=== PATIENT | male | born 1950 | race Caucasian/White ===

== ENCOUNTER 2017-02-05 15:59 | Inpatient (IN) | payer OTHER, BC ==
[2017-02-05] MEDS ORDERED: ASPIRIN 81 MG CHEWABLE TABLETS PO ONE (16:49)
[2017-02-05] MEDS ORDERED: ASPIRIN 81 MG CHEWABLE TABLETS ONE (16:57)
--- NOTE | 2017-02-05 16:58 | PDOC ---
History of Present Illness - General Chief Complaint: Chest Pain Stated Complaint: CHEST PAIN Time Seen by Provider: 02/05/17 16:18 History Source: Patient Exam Limitations: No Limitations - History of Present Illness Initial Comments: 02/05/17 16:52 Patient is a 66M with history of IDDM, CAD s/p stenting, HTN, Obesity s/p gastric bypass, and HLD here today complaining of chest pain since this morning. He states that it does not radiate, gets worse with exertion and better with rest. The pain doesn't get worse with inspiration or expiration. He denies nausea, vomiting, fevers, chills and diaphoresis. He endorses shortness of breath at baseline and increased shortness of breath. He says that he had a stress test done Monday but does not know the results and was scheduled for several other advanced cardiology tests this week. PCP: Louis All: [facility] Past History - Past Medical History Allergies/Adverse Reactions: Allergies Allergy/AdvReac Type Severity Reaction Status Date / Time No Known Allergies Allergy Verified 02/05/17 16:09 Home Medications: Ambulatory Orders Insulin Pump/Infus. Set/Meter [Accu-Chek Combo System] 1 each MC ASDIR 08/18/15 Levothyroxine [Synthroid -] 25 mcg PO DAILY 08/18/15 Ranolazine [Ranexa] 500 mg PO DAILY 08/18/15 Ropinirole HCl [Requip] 1 mg PO DAILY 08/18/15 Ropinirole HCl [Requip] 2 mg PO HS 08/18/15 Bisacodyl [Correctol] 5 mg PO DAILY 10/23/15 Cyanocobalamin (Vitamin B-12) [Vitamin B12] 1,000 mg PO DAILY 12/13/15 Metoprolol Succinate [Toprol XL -] 50 mg PO DAILY 12/13/15 Multivit-Min/FA/Lycopen/Lutein [Centrum Silver Tablet] 1 each PO DAILY 12/13/15 Omeprazole [Prilosec] 20 mg PO DAILY 12/13/15 Ondansetron HCl [Zofran] 4 mg PO DAILY PRN 12/13/15 Ergocalciferol [Vitamin D2] 50,000 unit PO Q7D 12/14/15 Anemia: No Asthma: No Cancer: No Cardiac Disorders: Yes (CAD, [place] 2005,ANGINA) CVA: No COPD: No CHF: No DVT: No Dementia: No Diabetes: Yes GI Disorders: Yes (Ulcerative colitis, GERD) Disorders: Yes (Renal Insufficiency) HTN: Yes Hypercholesterolemia: Yes Liver Disease: No Seizures: No Thyroid Disease: Yes (hypothyroid) - Surgical History Abdominal Surgery: Yes (gastric bypass 2005) Appendectomy: No Cardiac Surgery: Yes (stents x4) Cholecystectomy: No Gastric Stapling: Yes (GASTRIC BYPASS 2005) Lung Surgery: No Neurologic Surgery: No Orthopedic Surgery: No - Immunization History Immunization Up to Date: No - Suicide/Smoking/Psychosocial Hx Smoking Status: No Smoking History: Never smoked Have you smoked in the past 12 months: No Number of Cigarettes Smoked Daily: 0 Information on smoking cessation initiated: No Hx Alcohol Use: No Drug/Substance Use Hx: No Substance Use Type: None Hx Substance Use Treatment: No Review of Systems - Review of Systems Comments:: 02/05/17 17:30 GENERAL/CONSTITUTIONAL: No fever or chills. No weakness. HEAD, EYES, EARS, NOSE AND THROAT: No change in vision. No ear pain or discharge. No sore throat. CARDIOVASCULAR: Positive for chest pain and shortness of breath RESPIRATORY: No cough, wheezing, or hemoptysis. GASTROINTESTINAL: No nausea, vomiting, diarrhea or constipation. GENITOURINARY: No dysuria, frequency, or change in urination. MUSCULOSKELETAL: No joint or muscle swelling or pain. No neck or back pain. SKIN: No rash NEUROLOGIC: Positive for mild headache. Negative for vertigo, loss of consciousness, or change in strength/sensation. ENDOCRINE: No increased thirst. No abnormal weight change HEMATOLOGIC/LYMPHATIC: No anemia, easy bleeding, or history of blood clots. ALLERGIC/IMMUNOLOGIC: No hives or skin allergy. *Physical Exam - Vital Signs Last Vital Signs Temp Pulse Resp BP Pulse Ox 98.4 F 87 19 145/74 97 02/05/17 16:07 02/05/17 16:07 02/05/17 16:07 02/05/17 16:07 02/05/17 16:07 - Physical Exam Comments: 02/05/17 17:34 GENERAL: Awake, alert, and fully oriented, in no acute distress HEAD: No signs of trauma, normocephalic, atraumatic EYES: PERRLA, EOMI, sclera anicteric, conjunctiva clear ENT: Auricles normal inspection, hearing grossly normal, nares patent, oropharynx clear without exudates. Moist mucosa NECK: Normal ROM, supple, no lymphadenopathy, JVD, or masses LUNGS: No distress, speaks full sentences, clear to auscultation bilaterally HEART: Regular rate and rhythm, normal S1 and S2, no murmurs, rubs or gallops, peripheral pulses normal and equal bilaterally. ABDOMEN: Soft, nontender, normoactive bowel sounds. No guarding, no rebound. No masses EXTREMITIES: Normal inspection, Normal range of motion, 2+ pitting edema to knee. No clubbing or cyanosis. NEUROLOGICAL: Cranial nerves II through XII grossly intact. Normal speech, no focal sensorimotor deficits SKIN: Warm, Dry, normal turgor, no rashes or lesions noted. Heart Score/ECG Review - History History: Highly suspicious - Electrocardiogram EKG: Normal - Age Age: >/= 65 - Risk Factors Risk Factors Heart Score: Yes Hx Hypercholesterolemia, Yes Hx Diabetes, Yes Hx Obesity Based on the list above the patient has:: >/=3 risk factors or Hx atherosclerotic disease - Troponin Troponin: </= normal limit - Score Heart Score - Total: 6 ED Treatment Course - LABORATORY CBC & Chemistry Diagram: 02/05/17 17:45 02/05/17 17:45 - RADIOLOGY Radiology Studies Ordered: Category Date Time Status CHEST X-RAY PORTABLE* [RAD] Stat Radiology 02/05/17 16:49 Ordered Medical Decision Making - Medical Decision Making 02/05/17 17:35 Patient is a 66M with history of IDDM, CAD s/p stenting, HTN, Obesity s/p gastric bypass, and HLD here today complaining of chest pain since this morning. Vital signs stable and normal. Differential diagnosis includes, but is not limited to: ACS, angina, CHF. Will evaluate with cardiac workup and most likely admit to inpatient tele. 02/05/17 18:43 Laboratory Tests 02/05/17 02/05/17 17:10 17:10 WBC Cancelled Hgb Cancelled Hct Cancelled INR 0.96 CBC shows slight anemia, INR normal. cmp, trop pending. 02/05/17 19:03 Laboratory Tests 02/05/17 17:10 Random Glucose Cancelled Troponin I Cancelled Glucose elevated given 500 ml. Trop negative. Will admit. Signed out to Dr Murphy. 02/05/17 19:07 On further question, patient has a history of DVT with an elevated Cr. Will need V/Q scan tomorrow. Signed out to Dr Murphy. *DC/Admit/Observation/Transfer Diagnosis at time of Disposition: Chest pain - Referrals Referrals: Pavel Myers MD [Primary Care Provider] - - Patient Instructions - Post Discharge Activity
[2017-02-05] MEDS ORDERED: SODIUM CHLORIDE 500 ML IV STA (18:03)
--- NOTE | 2017-02-05 18:09 | PDOC ---
Attending Attestation - Resident Resident Name: Blas Carpenter - ED Attending Attestation I have performed the following: I have examined & evaluated the patient, The case was reviewed & discussed with the resident, I agree w/resident's findings & plan, Exceptions are as noted - HPI HPI: 02/05/17 18:06 66 M with h/o IDDM, CAD s/p stenting, HTN, Obesity s/p gastric bypass, and HLD, presenting to ER with chest pain. Pt states the pain began this morning. It is midsternal, non-radiating. It is worsened with exertion and relieved with rest. Pain is not pleuritic. Pt denies any F/C. Denies cough. Pt also has h/o DVT, no longer on coumadin. He denies any new swelling in his legs. Had an outpt doppler last week but does not know the results. - Physicial Exam PE: 02/05/17 18:07 "GENERAL: Awake, alert, and fully oriented, in no acute distress HEAD: No signs of trauma EYES: PERRLA, EOMI, sclera anicteric, conjunctiva clear ENT: Auricles normal inspection, hearing grossly normal, nares patent, oropharynx clear without exudates. Moist mucosa NECK: Nontender, no stepoffs, Normal ROM, supple, no lymphadenopathy, JVD, or masses LUNGS: Breath sounds equal, clear to auscultation bilaterally. No wheezes, and no crackles HEART: Regular rate and rhythm, normal S1 and S2, no murmurs, rubs or gallops ABDOMEN: Soft, nontender, normoactive bowel sounds. No guarding, no rebound. No masses EXTREMITIES: Normal range of motion, no edema. No clubbing or cyanosis. No cords, erythema, or tenderness NEUROLOGICAL: Cranial nerves II through XII intact. 5/5 strength and sensation in all extremities, Normal speech, normal gait SKIN: Warm, Dry, normal turgor, no rashes or lesions noted. " - Medical Decision Making 02/05/17 18:08 66 M with CAD presenting with chest pain, concerning for ACS. EKG with no ischemic changes. No tearing sensation to suggest dissection. No SOB/tachycardia /hypoxia/tachypnea to suggest PE. However, given h/o DVT not on AC, will need PE rule out. - Labs, serial troponins - Aspirin - CXR - Admit tele 02/05/17 19:12 Initial Trop negative, EKG nonischemic. Pt with Cr 2.8, unable to get CTA to r/o PE. Will need V/Q scan as inpt. Pt signed out to oncoming attending, pending repeat troponin and admission to tele.
[2017-02-05 18:21] LABS: MCH 32.6 pg (25.7-33.7); MCHC 34.8 g/dl (32.0-35.9); MEAN CELL VOLUME 93.8 fl (80-96); MEAN PLT VOLUME 8.2 fl (7.5-11.1); PLATELET COUNT 228 K/MM3 (134-434); RDW 13.2 % (11.9-15.9); WHITE BLOOD COUNT 6.8 K/mm3 (4.0-10.0)
[2017-02-05 18:24] LABS: INR 0.96 (0.82-1.09); PROTHROMBIN TIME (PATIENT) 10.8 SEC (9.98-11.88)
[2017-02-05 18:45] LABS: ANION GAP 11 (8-16); BILIRUBIN,TOTAL 0.3 mg/dL (0.2-1.0); CALCIUM 8.1 mg/dL (8.5-10.1); CO2 23 mmol/L (21-32); CREATININE 2.8 mg/dL (0.7-1.3); SGOT/AST 14 U/L (15-37); SGPT/ALT 24 U/L (12-78); TOT PROT 6.1 g/dl (6.4-8.2)
[2017-02-05 18:47] LABS: ALK PHOS 68 U/L (45-117); CPK 122 IU/L (39-308); TROPONIN I < 0.02 ng/ml (0.00-0.05)
[2017-02-05 18:49] LABS: GLUCOSE,RANDOM 372 mg/dL (74-106)
[2017-02-05] MEDS ORDERED: NITROGLYCERIN SUBLINGUAL 1/150 0.4 MG TAB SL ONE (18:53)
[2017-02-05] MEDS ORDERED: NITROGLYCERIN SUBLINGUAL 1/150 0.4 MG TAB ONE ×2 (19:05→19:39)
--- NOTE | 2017-02-05 20:04 | PDOC ---
*Physical Exam - Vital Signs Care assumed from Dr. Carpenter. 66 YOM with h/o CAD with stenting, DVT/PE, p/w chest pain since this morning persistent despite NTG here in the ED. Initial EKG and troponin were normal. Admitted to tele. On re-exam he has irregular rhythm which appears to be PACs on monitor, will repeat EKG now. PACs were previously noted on EKG from 08/18/15. Last Vital Signs Temp Pulse Resp BP Pulse Ox 98.4 F 73 20 149/81 100 02/05/17 16:07 02/05/17 18:51 02/05/17 18:51 02/05/17 18:51 02/05/17 18:51 02/05/17 20:08 - Physical Exam General Appearance: Yes: Nourished, Appropriately Dressed, Other (alert and answering questions appropriately). No: Apparent Distress HEENT: positive: EOMI, Normal Voice Neck: positive: Trachea midline. negative: Rigid Respiratory/Chest: positive: Lungs Clear. negative: Respiratory Distress Cardiovascular: positive: Irregular Gastrointestinal/Abdominal: positive: Soft. negative: Tender Musculoskeletal: positive: Normal Inspection. negative: Decreased Range of Motion Extremity: positive: Normal Capillary Refill, Normal Inspection. 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 intact (grossly), Fully Oriented, Alert, Normal Mood/Affect, Normal Response, Motor Strength 5/5 Heart Score/ECG Review - History History: Highly suspicious - Electrocardiogram EKG: Normal - Age Age: >/= 65 - Risk Factors Risk Factors Heart Score: Yes Hx Hypercholesterolemia, Yes Hx Hypertension, Yes Hx Diabetes, Yes Hx Obesity Based on the list above the patient has:: >/=3 risk factors or Hx atherosclerotic disease - Troponin Troponin: 1-3x normal limit - Score Heart Score - Total: 7 ED Treatment Course - LABORATORY CBC & Chemistry Diagram: 02/06/17 06:10 02/05/17 17:45 - ADDITIONAL ORDERS Additional order review: Laboratory Results 02/05/17 02/05/17 02/05/17 17:45 17:10 17:10 PT with INR INR Sodium 139 Cancelled Potassium 4.1 Cancelled Chloride 105 Cancelled Carbon Dioxide 23 Cancelled Anion Gap 11 Cancelled BUN 52 H D Cancelled Creatinine 2.8 H D Cancelled Creat Clearance w eGFR 22.86 Cancelled Random Glucose 372 H* D Cancelled Calcium 8.1 L Cancelled Magnesium Cancelled Total Bilirubin 0.3 D Cancelled AST 14 L D Cancelled ALT 24 Cancelled Alkaline Phosphatase 68 Cancelled Creatine Kinase 122 Cancelled Troponin I < 0.02 Cancelled B-Natriuretic Peptide Cancelled Total Protein 6.1 L Cancelled Albumin 3.0 L Cancelled 02/05/17 17:10 PT with INR 10.80 INR 0.96 Sodium Potassium Chloride Carbon Dioxide Anion Gap BUN Creatinine Creat Clearance w eGFR Random Glucose Calcium Magnesium Total Bilirubin AST ALT Alkaline Phosphatase Creatine Kinase Troponin I B-Natriuretic Peptide Total Protein Albumin 02/05/17 02/05/17 17:45 17:10 RBC 3.53 L Cancelled MCV 93.8 Cancelled MCHC 34.8 Cancelled RDW 13.2 Cancelled MPV 8.2 Cancelled Neutrophils % Cancelled Lymphocytes % Cancelled Monocytes % Cancelled Eosinophils % Cancelled Basophils % Cancelled - Medications Given in the ED: ED Medications Discontinued Medications Generic Name Dose Route Start Last Admin Trade Name Elizabeth PRN Reason Stop Dose Admin Aspirin 162 mg 02/05/17 16:49 02/05/17 17:31 Asa - PO 02/05/17 16:50 162 mg ONCE ONE Administration Sodium Chloride 500 mls @ 1,000 mls/hr 02/05/17 18:03 02/05/17 18:35 Normal Saline - IV 02/05/17 18:32 1,000 mls/hr ASDIR STA Administration Nitroglycerin 0.4 mg 02/05/17 18:53 02/05/17 19:05 Nitrostat - SL 02/05/17 18:54 0.4 mg ONCE ONE Administration Medical Decision Making - Medical Decision Making 66 YOM wih h/o CAD, stenting, DVT/PE 1.5 years ago anticoagulated for 6 months. Presents with CP all day, persists after 2 NTG in the ED. EKG and trop negative initially; repeating 3-4 hours later now. 02/05/17 20:21 PACs on EKG which were noted previously only when he was admitted for PE. 2 mg morphine ordered for continued pain. Repeating CBG now. Spoke with admitting resident Danika Gray, will speak with her team. 02/05/17 22:10 Repeat troponin is 0.12, giving heparin and Plavix. Fingerstick BG is 314. 01/27/17 06:00 Pt required repeated morphine 2 mg IM throughout the night but otherwise doing well. Awaiting hospital tele bed. Care passed down to oncoming morning shift. *DC/Admit/Observation/Transfer Diagnosis at time of Disposition: Chest pain Qualifiers: Chest pain type: unspecified Qualified Code(s): R07.9 - Chest pain, unspecified - Referrals - Patient Instructions - Post Discharge Activity
[2017-02-05] MEDS ORDERED: morphine CARPU-JECT 2 MG/1 ML DISP.SYRIN IVPUSH ONE ×3 (20:20→21:41)
[2017-02-05] MEDS ORDERED: morphine SULFATE 4 MG/ML VIAL ONE ×2 (20:22→21:18)
[2017-02-05] MEDS ORDERED: KETOROLAC TROMETHAMINE 30 MG/1 ML VIAL IVPUSH ONE (20:31)
[2017-02-05 21:15] LABS: TROPONIN I 0.12 ng/ml (0.00-0.05)
[2017-02-05] MEDS ORDERED: KETOROLAC TROMETHAMINE 30 MG/1 ML VIAL ONE (21:19)
[2017-02-05] MEDS ORDERED: HEPARIN NA (PORCINE) 5,000 UNITS/ML 1ML VIAL IVPUSH ONE (22:03)
[2017-02-05] MEDS ORDERED: HEPARIN NA (PORCINE) 5,000 UNITS/ML 1ML VIAL IVPUSH PRN (22:03)
[2017-02-05] MEDS ORDERED: CLOPIDOGREL BISULFATE 300 MG TABLET PO ONE (22:06)
[2017-02-05] MEDS ORDERED: HEPARIN INFUSION - 25,000 UNITS/500 ML INFUS.BAG IVPB ONE (22:43)
[2017-02-05] MEDS ORDERED: CLOPIDOGREL BISULFATE 300 MG TABLET ONE (22:43)
[2017-02-05] MEDS ORDERED: HEPARIN NA (PORCINE) 5,000 UNITS/ML 1ML VIAL ONE (22:43)
[2017-02-05] MEDS: HEPARIN - 25,000 UNIT in SODIUM CHLORIDE 495 ML IV SCH (22:54)
[2017-02-05] MEDS ORDERED: PATIENT'S OWN MEDICATION (NON-FORMULARY) (Insulin Pump/Infus. Set/Meter [Accu-Chek Combo S MC SCH (23:30)
[2017-02-05] MEDS ORDERED: morphine SULFATE 4 MG/ML VIAL IVPUSH PRN (23:31)
[2017-02-05] MEDS ORDERED: NITROGLYCERIN SUBLINGUAL 1/200 0.3 MG BTL SL PRN (23:31)
[2017-02-06] MEDS: SODIUM CHLORIDE 1,000 ML IV SCH ×2 (00:23→23:17)
[2017-02-06] MEDS: LOSARTAN POTASSIUM 50 MG TABLET (FP) PO SCH ×2 (00:23→09:45)
[2017-02-06] MEDS ORDERED: LOSARTAN POTASSIUM 25 MG TABLET ONE (00:29)
[2017-02-06] MEDS ORDERED: PANTOPRAZOLE 40 MG TABLET (FP) ONE (00:29)
[2017-02-06] MEDS: PANTOPRAZOLE 40 MG TABLET (FP) PO SCH ×2 (00:37→09:43)
[2017-02-06] MEDS ORDERED: morphine CARPU-JECT 2 MG/1 ML DISP.SYRIN IVPUSH ONE (05:23)
[2017-02-06] MEDS ORDERED: morphine SULFATE 4 MG/ML VIAL ONE (05:24)
[2017-02-06 06:45] LABS: BASOPHIL 0.7 % (0-2.0); MCH 32.2 pg (25.7-33.7); MCHC 34.2 g/dl (32.0-35.9); MEAN CELL VOLUME 94.2 fl (80-96); MEAN PLT VOLUME 7.8 fl (7.5-11.1); NEUTROPHILS 48.3 % (42.8-82.8); PLATELET COUNT 196 K/MM3 (134-434); RDW 13.4 % (11.9-15.9); WHITE BLOOD COUNT 8.4 K/mm3 (4.0-10.0)
[2017-02-06] MEDS: TORSEMIDE 10 MG TABLET PO SCH ×2 (06:57→14:45)
--- NOTE | 2017-02-06 08:24 | PDOC ---
*Physical Exam - Vital Signs Last Vital Signs Temp Pulse Resp BP Pulse Ox 98.4 F 65 18 120/61 100 02/06/17 01:21 02/06/17 01:21 02/06/17 01:21 02/06/17 01:21 02/06/17 01:21 - Physical Exam Comments: 02/06/17 08:20 GENERAL: Awake, alert, and fully oriented, in no acute distress HEAD: No signs of trauma, normocephalic, atraumatic EYES: PERRLA, EOMI, sclera anicteric, conjunctiva clear ENT: Auricles normal inspection, hearing grossly normal, nares patent, oropharynx clear without exudates. Moist mucosa NECK: Normal ROM, supple, no lymphadenopathy, JVD, or masses LUNGS: No distress, speaks full sentences, clear to auscultation bilaterally HEART: Regular rate and rhythm, normal S1 and S2, no murmurs, rubs or gallops, peripheral pulses normal and equal bilaterally. EXTREMITIES: Normal inspection, Normal range of motion, no edema. No clubbing or cyanosis. NEUROLOGICAL: Cranial nerves II through XII grossly intact. Normal speech, no focal sensorimotor deficits SKIN: Warm, Dry, normal turgor, no rashes or lesions noted. ED Treatment Course - LABORATORY CBC & Chemistry Diagram: 02/06/17 06:10 02/05/17 17:45 - ADDITIONAL ORDERS Additional order review: Laboratory Results 02/05/17 18:00 POC Glucometer [id number] 02/05/17 02/05/17 02/05/17 18:00 17:45 17:10 RBC 3.53 L Cancelled MCV 93.8 Cancelled MCHC 34.8 Cancelled RDW 13.2 Cancelled MPV 8.2 Cancelled Neutrophils % Cancelled Lymphocytes % Cancelled Monocytes % Cancelled Eosinophils % Cancelled Basophils % Cancelled POC Glucometer [id number] - RADIOLOGY Radiology Studies Ordered: Category Date Time Status CHEST X-RAY PORTABLE* [RAD] Stat Radiology 02/05/17 16:49 Completed DUPLEX VASCUL US-2LEGS [US] Stat Ultrasound 02/05/17 19:17 Taken - Medications Given in the ED: ED Medications Discontinued Medications Generic Name Dose Route Start Last Admin Trade Name Freq PRN Reason Stop Dose Admin Aspirin 162 mg 02/05/17 16:49 02/05/17 17:31 Asa - PO 02/05/17 16:50 162 mg ONCE ONE Administration Clopidogrel Bisulfate 300 mg 02/05/17 22:06 02/05/17 22:54 Plavix - PO 02/05/17 22:07 300 mg ONCE ONE Administration Heparin Sodium (Porcine) 5,000 unit 02/05/17 22:03 02/05/17 22:54 Heparin - IVPUSH 02/05/17 22:04 5,000 unit ONCE ONE Administration Sodium Chloride 500 mls @ 1,000 mls/hr 02/05/17 18:03 02/05/17 18:35 Normal Saline - IV 02/05/17 18:32 1,000 mls/hr ASDIR STA Administration Ketorolac Tromethamine 30 mg 02/05/17 20:31 02/05/17 20:30 Toradol Injection - IVPUSH 02/05/17 20:32 30 mg ONCE ONE Administration Morphine Sulfate 2 mg 02/05/17 20:20 02/05/17 20:36 Morphine Injection - IVPUSH 02/05/17 20:21 2 mg ONCE ONE Administration Morphine Sulfate 2 mg 02/05/17 20:31 02/05/17 20:40 Morphine Injection - IVPUSH 02/05/17 20:32 2 mg ONCE ONE Administration Morphine Sulfate 2 mg 02/05/17 21:41 02/05/17 21:49 Morphine Injection - IVPUSH 02/05/17 21:42 2 mg ONCE ONE Administration Morphine Sulfate 2 mg 02/06/17 05:23 02/06/17 05:32 Morphine Injection - IVPUSH 02/06/17 05:24 2 mg ONCE ONE Administration Nitroglycerin 0.4 mg 02/05/17 18:53 02/05/17 19:05 Nitrostat - SL 02/05/17 18:54 0.4 mg ONCE ONE Administration Medical Decision Making - Medical Decision Making 02/06/17 08:22 66M with history of IDDM, CAD s/p stenting in the ED today with chest pain. Admitted already. Trop called in at 10.6. Chest pain free. Ordered repeat EKG. Calls out to Andrea, the admitting team. Exam normal. 02/06/17 08:43 EKG shows normal sinus rhythm, normal rate, normal axis, no st elevations or t- wave inversions. Normal intervals. 02/06/17 09:46 Patient's admitting team notified and contacted. Appraised of situation. Given aspirin, already on heparin drip, given additional 300mg of plavix for a total of 600. *DC/Admit/Observation/Transfer Diagnosis at time of Disposition: Chest pain - Referrals - Patient Instructions - Post Discharge Activity
[2017-02-06] MEDS ORDERED: ASPIRIN 81 MG CHEWABLE TABLETS PO ONE (08:40)
[2017-02-06] MEDS ORDERED: CLOPIDOGREL BISULFATE 300 MG TABLET PO ONE (08:40)
--- NOTE | 2017-02-06 09:12 | CON.CARD ---
Consult Consult Specialty:: cardio Referred by:: shalom Reason for Consultation:: cp - History of Present Illness Chief Complaint: same History of Present Illness: 66 yo man came to ER 02/05 with unremitting cp all day. per ER notes, pain persisted in ER, unresponsive to nitro (given in ER on 02/05 at 19:05) ECG x3 in ER no ischemic changes describes on DOA strong squeezing pain in mid-sternum, 5 of 10 intensity. hasn't had pain that severe since his last CA. similar quality to angina though. resolved after ranexa in am, then returned in afternoon so came to ER--given NTG SL x 2 he says, no relief. given morphine IV last night with good relief. then another dose this am. feeling still lingers mild, about 2 out of 10. no sob/orthopnea. notes sob on walking short distance--stable long time. pt sees dr cannon, last visit 01/18. known chronic CAD with angina. by notes, his angina persisted after last stent in 2009 baseline was 2-3 blocks, had recently progressed to 1/2 block effort tolerance with angina. BB, then ranexa added, and sx's improved markedly. correct home meds list: ASA 81 benicar 20 ranexa 1000 bid metopr succ 50 qd atorva 80 lovaza 2g bid torsemide 10 BIW PMH: CAD/PCI (h/o stents to mLAD, D2, mRCA, then DELMIS to pLAD 2009 for typical angina) DVT--s/p 12 mo AC (2015, provoked) DM--on insulin HTN obesity s/p gastric bypass [facility]--declined cpap 2015: staph infection at insulin pump site - Past Medical History Cardio/Vascular: Yes: CAD, HTN, Hyperlipdemia Pulmonary: Yes: Pulmonary Embolus Endocrine: Yes: Diabetes Mellitus - Alcohol/Substance Use Hx Alcohol Use: No - Smoking History Smoking history: Never smoked Have you smoked in the past 12 months: No Aproximately how many cigarettes per day: 0 Home Medications - Allergies Allergies/Adverse Reactions: Allergies Allergy/AdvReac Type Severity Reaction Status Date / Time No Known Allergies Allergy Verified 02/05/17 16:09 - Home Medications Home Medications: Ambulatory Orders Insulin Pump/Infus. Set/Meter [Accu-Chek Combo System] 1 each ASDIR 08/18/15 Ranolazine [Ranexa] 500 mg PO DAILY 08/18/15 Ropinirole HCl [Requip] 1 mg PO DAILY 08/18/15 Metoprolol Succinate [Toprol XL -] 50 mg PO DAILY 12/13/15 Multivit-Min/FA/Lycopen/Lutein [Centrum Silver Tablet] 1 each PO DAILY 12/13/15 Omeprazole [Prilosec] 40 mg PO DAILY 12/13/15 Bisacodyl [Ducodyl] 5 mg PO DAILY 02/05/17 Icosapent Ethyl [Vascepa] 1 gm PO DAILY 02/05/17 Olmesartan Medoxomil 20 mg PO DAILY 02/05/17 Promethazine HCl 25 mg PO DAILY 02/05/17 Tamsulosin HCl [Flomax] 0.4 mg PO DAILY 02/05/17 Torsemide [Demadex] 10 mg PO WEEKLY 02/05/17 Family Disease History - Family Disease History Family History: Denies (no cmp) Review of Systems - Review of Systems Constitutional: denies: Chills, Fever Eyes: denies: Eye Pain HENT: denies: Nasal Congestion Neck: denies: Stiffness Cardiovascular: denies: Palpitations Respiratory: denies: Orthopnea, PND Gastrointestinal: denies: Diarrhea, Rectal Bleeding Genitourinary: denies: Burning, Hematuria Musculoskeletal: denies: Muscle Pain Integumentary: denies: Rash Neurological: denies: Numbness, Seizure, Syncope Endocrine: denies: Excessive Sweating Hematology/Lymphatic: denies: Excessive Bleeding Vital Signs: Vital Signs Temperature 98.4 F 02/06/17 01:21 Pulse Rate 65 02/06/17 01:21 Respiratory Rate 18 02/06/17 01:21 Blood Pressure 120/61 02/06/17 01:21 O2 Sat by Pulse Oximetry (%) 100 02/06/17 01:21 Constitutional: Yes: Well Nourished, No Distress Eyes: No: Sclera Icterus HENT: No: Nasal Congestion Neck: No: Decreased ROM Respiratory: Yes: CTA Bilaterally. No: Accessory Muscle Use, Rales, Wheezes Gastrointestinal: Yes: Normal Bowel Sounds. No: Distention, Hepatomegaly, Palpable Mass, Tenderness Cardiovascular: Yes: Regular Rate and Rhythm JVD: No Carotid Bruit: No PMI: Non-Displaced Heart Sounds: Yes: S1, S2. No: Gallop Murmur: No: Systolic Murmur, Diastolic Murmur Musculoskeletal: Yes: Other (No kyphosis) Extremities: No: Cold, Cyanosis Edema: No Peripheral Pulses: 2+ Left Carotid, 2+ Right Carotid, 2+ Left Doralis Pedis, 2+ Right Dorsalis Pedis Integumentary: No: Jaundice Neurological: Yes: Alert, Oriented (x3) Psychiatric: No: Agitated - Other Data Labs, Other Data: CBC, BMP 02/06/17 06:10 02/05/17 17:45 INR, PTT INR 0.96 (0.82-1.09) 02/05/17 17:10 Troponin, BNP 02/05/17 02/05/17 02/05/17 17:10 17:10 17:45 Troponin I Cancelled < 0.02 B-Natriuretic Peptide Cancelled 02/05/17 02/06/17 20:30 06:10 Troponin I 0.12 H D 10.60 H* D B-Natriuretic Peptide Troponin, BNP 02/05/17 02/05/17 02/05/17 17:10 17:10 17:45 Troponin I Cancelled < 0.02 B-Natriuretic Peptide Cancelled 02/05/17 02/06/17 20:30 06:10 Troponin I 0.12 H D 10.60 H* D B-Natriuretic Peptide Laboratory Tests 12/15/15 02/05/17 02/05/17 06:50 17:45 20:30 WBC Hgb Plt Count Sodium 139 Potassium 4.1 Carbon Dioxide 23 BUN 52 H D Creatinine 2.8 H D Hemoglobin A1c % 10.3 H D AST 14 L D ALT 24 Troponin I < 0.02 0.12 H D 02/06/17 02/06/17 06:10 06:10 WBC 8.4 Hgb 11.3 L Plt Count 196 Sodium Potassium Carbon Dioxide BUN Creatinine Hemoglobin A1c % AST ALT Troponin I 10.60 H* D Assessment/Plan ECG #1 (02/05): NSR, LAFB, no path q's; no ST-T abn #2 (02/05): no change #3 (02/06): no change Echo 08/09: nl LV/EF; nl RV; nl LA; trace MR; nuclear stress test 06/09 report (outside facility, in [place]): no STs; mid- basal IW ischemia MPI 01/30/17 ([facility]): no STs; no ischemia; nl EF (89%) NSTEMI on h/o prior CAD: -has h/o chronic angina (persisted after last PCI 2009), stable sx's improved signif on metopr and renexa as outpt recently -developed persistent CP on DOA 02/05 -no ekg changes x3 -ruling in, now with troponin rising briskly to 10 -LCX lesion more likely here than balanced (multivessel) ischemia in light of normal (hyperdynamic) EF on mpi, though the latter is possible and pt at risk for MVDz -hi risk for CHRISTA. after d/w his outpt [employer] manager dr charles, his creat is close to baseline though slightly above last value 04/12 (only sees pt once a year as he is in [place] half the year) and same as 11/[address] riggins (creat 2.74 then)--? acute vs more likely gradual DM nephropathy progression accounts for the slightly higher creat -he thinks significant improvement in renal fxn pre-cath to ameliorate CHRISTA risk is not likely, and rec's the standard gerber-cath prophylaxis -i d/w'd pt and the small but finite risk of MVDz here, which is associated with signif worse outcome (MIs and ) with med mgmt vs revascularization in him; also d/w'd him the risks of CHRISTA and their estimated probability. -he verbalized understanding of the discussion and stated that he wants to be aggressive and prolong life expectancy/minimize CV risks as much as possible, hence wishes to pursue cath. -d/w'd dr lam interventionalist--will plan to hydrate overnight and take for cath tomorrow if remains clinically without unstable sx's -received plavix 300mg x1 in ER,on 02/05, then 600mg / am (?). -cont asa, UFH gtt -per interventionalist, will cont plavix since he was already loaded -cont home atorva 80, metopr 50 -hold ARB (? on at home--ordered here) given hi risks for acute worsening renal fxn -hold home ranexa (on 1000 bid) CKD: -prior creat range here 2015 = 1.9-2.4 -04/12 was 2.6 -currently with creat 2.8 -hydration for CHRISTA prophlxs as above HTN: -BP controlled -cont same meds DM: -A1c 9.0 in 04/12, ? more recent -per pmd
[2017-02-06] MEDS: METOPROLOL SUCCINATE 50 MG TAB.SR.24H (FP) PO SCH (09:44)
[2017-02-06] MEDS: PROMETHAZINE HCL 25 MG TABLET PO SCH (09:55)
[2017-02-06] MEDS: BISACODYL 5 MG TABLET.DR (FP) PO SCH (09:59)
[2017-02-06] MEDS: TAMSULOSIN HCL 0.4 MG CAP.ER.24H (FP) PO SCH (09:59)
[2017-02-06] MEDS ORDERED: [UNRECOGNIZED DRUG - OTHER] PO SCH (10:00)
[2017-02-06] MEDS ORDERED: RANOLAZINE E.R. 500 MG TABLET (FP) PO SCH (10:00)
[2017-02-06] MEDS ORDERED: VALSARTAN 160 MG TABLET (UD) PO SCH (10:00)
--- NOTE | 2017-02-06 10:20 | HP ---
Admitting History and Physical - Primary Care Physician PCP: Pavel Myers - Admission History of Present Illness: Patient is a 66M with history of IDDM, CAD s/p stenting, HTN, Obesity s/p gastric bypass, DVT S/P AC for 12 months,and HLD here today complaining of chest pain since this morning. He states that it does not radiate, gets worse with exertion and better with rest. The pain doesn't get worse with inspiration or expiration. per patient he describes the chest pain as tightness which started at rest non radiating, he took ranexa and he says he felt better the pain resolved but after a little while it came back again and then he decided to come to ER. He denies nausea, vomiting, fevers, chills and diaphoresis. in the ER he got nitro , aspirin, plavix and heparin drip found to have elevated troponin upto 10 History Source: Patient, Medical Record - Past Medical History Cardiovascular: Yes: CAD, HTN, Hyperlipdemia Pulmonary: Yes: Pulmonary Embolus Renal/: Yes: Renal Failure Endocrine: Yes: Diabetes Mellitus - Smoking History Smoking history: Never smoked Have you smoked in the past 12 months: No Aproximately how many cigarettes per day: 0 - Alcohol/Substance Use Hx Alcohol Use: No Home Medications - Allergies Allergies/Adverse Reactions: Allergies Allergy/AdvReac Type Severity Reaction Status Date / Time No Known Allergies Allergy Verified 02/05/17 16:09 - Home Medications Home Medications: Ambulatory Orders Insulin Pump/Infus. Set/Meter [Accu-Chek Combo System] 1 each ASDIR 08/18/15 Ranolazine [Ranexa] 500 mg PO DAILY 08/18/15 Ropinirole HCl [Requip] 1 mg PO DAILY 08/18/15 Metoprolol Succinate [Toprol XL -] 50 mg PO DAILY 12/13/15 Multivit-Min/FA/Lycopen/Lutein [Centrum Silver Tablet] 1 each PO DAILY 12/13/15 Omeprazole [Prilosec] 40 mg PO DAILY 12/13/15 Bisacodyl [Ducodyl] 5 mg PO DAILY 02/05/17 Icosapent Ethyl [Vascepa] 1 gm PO DAILY 02/05/17 Olmesartan Medoxomil 20 mg PO DAILY 02/05/17 Promethazine HCl 25 mg PO DAILY 02/05/17 Tamsulosin HCl [Flomax] 0.4 mg PO DAILY 02/05/17 Torsemide [Demadex] 10 mg PO WEEKLY 02/05/17 Review of Systems - Review of Systems Cardiovascular: reports: Chest Pain (a little earlier today currently chest pain free) Physical Examination Vital Signs: Vital Signs Temperature 98.4 F 02/06/17 01:21 Pulse Rate 65 02/06/17 01:21 Respiratory Rate 18 02/06/17 01:21 Blood Pressure 120/61 02/06/17 01:21 O2 Sat by Pulse Oximetry (%) 100 02/06/17 01:21 Constitutional: Yes: Calm Cardiovascular: Yes: Regular Rate and Rhythm, S1, S2 Respiratory: Yes: CTA Bilaterally Gastrointestinal: Yes: Normal Bowel Sounds, Soft Edema: Yes Edema: LLE: 1+, RLE: Trace Neurological: Yes: Alert, Oriented Labs: CBC, BMP 02/06/17 06:10 02/05/17 17:45 Imaging - Results Chest X-ray: Report Reviewed (no infiltrate) Problem List - Problems (1) Chest pain Assessment/Plan: postive troponin heparin drip tele continue metoprolol, statin and aspirin hold Ranexa,ACEI,plavix for now per cardio notes Code(s): R07.9 - CHEST PAIN, UNSPECIFIED (2) CKD (chronic kidney disease) Assessment/Plan: will get renal to see patient hold ACEI Code(s): N18.9 - CHRONIC KIDNEY DISEASE, UNSPECIFIED (3) 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
[2017-02-06] MEDS ORDERED: SODIUM CHLORIDE 1,000 ML IV SCH (11:45)
[2017-02-06] MEDS ORDERED: ACETYLCYSTEINE 20% 200MG/ML 30 ML VIAL *FOR ORAL / INH USE ONLY PO SCH (12:00)
[2017-02-06 12:40] VITALS: BMI 39.9
[2017-02-06] MEDS: HEPARIN - 25,000 UNIT in SODIUM CHLORIDE 495 ML IV SCH ×2 (13:00→23:16)
[2017-02-06] MEDS ORDERED: ATORVASTATIN CA 80 MG TABLET (FP) ONE (14:40)
[2017-02-06] MEDS: rOPINIRole HCL 1 MG TABLET (FP) PO SCH (14:45)
[2017-02-06] MEDS: ATORVASTATIN CA 80 MG TABLET (FP) PO SCH ×2 (14:45→21:34)
[2017-02-06] MEDS ORDERED: ACETYLCYSTEINE 20% 200MG/ML 4 ML VIAL *FOR ORAL / INH USE ONLY ONE (15:10)
--- NOTE | 2017-02-06 17:26 | EKG ---
Test Reason : Blood Pressure : / mmHG Vent. Rate : 070 BPM Atrial Rate : 070 BPM P-R Int : 164 ms QRS Dur : 080 ms QT Int : 428 ms P-R-T Axes : 050 -17 030 degrees QTc Int : 462 ms NORMAL SINUS RHYTHM NORMAL ECG WHEN COMPARED WITH ECG OF 05-FEB-2017 19:58, PREMATURE SUPRAVENTRICULAR COMPLEXES ARE NO LONGER PRESENT Confirmed by LD RAMSEY MD ([id number]) on 02/06/2017 5:26:18 PM Referred By: Confirmed By:LD RAMSEY MD
--- NOTE | 2017-02-06 17:31 | EKG ---
Test Reason : Blood Pressure : / mmHG Vent. Rate : 072 BPM Atrial Rate : 072 BPM P-R Int : 174 ms QRS Dur : 074 ms QT Int : 418 ms P-R-T Axes : 046 -31 009 degrees QTc Int : 457 ms SINUS RHYTHM WITH PREMATURE SUPRAVENTRICULAR COMPLEXES LEFT AXIS DEVIATION ABNORMAL ECG WHEN COMPARED WITH ECG OF 05-FEB-2017 17:17, PREMATURE SUPRAVENTRICULAR COMPLEXES ARE NOW PRESENT T WAVE VARIATION Confirmed by ROXY RENTERIA, LD ([id number]) on 02/06/2017 5:30:43 PM Referred By: Confirmed By:LD RAMSEY MD
--- NOTE | 2017-02-06 17:32 | EKG ---
Test Reason : Blood Pressure : / mmHG Vent. Rate : 086 BPM Atrial Rate : 086 BPM P-R Int : 168 ms QRS Dur : 090 ms QT Int : 392 ms P-R-T Axes : 059 -40 040 degrees QTc Int : 469 ms NORMAL SINUS RHYTHM LEFT AXIS DEVIATION ABNORMAL ECG WHEN COMPARED WITH ECG OF 19-AUG-2015 08:50, PREMATURE SUPRAVENTRICULAR COMPLEXES ARE NO LONGER PRESENT VENT. RATE HAS INCREASED Confirmed by ROXY RENTERIA, LD ([id number]) on 02/06/2017 5:32:07 PM Referred By: Confirmed By:LD RAMSEY MD
--- NOTE | 2017-02-06 18:38 | CON.NEP ---
Consult Consult Specialty:: Nephrology Referred by:: Dr. Burger Reason for Consultation:: CKD/Contrast Nephropathy Prophylaxis - History of Present Illness Chief Complaint: Chest pain History of Present Illness: This is a 66 year old gentleman with PMhx of, CKD stage 4 (likely diabetic nephropathy), IDDM, CAD s/p stenting, HTN, Obesity s/p gastric bypass, DVT S/P AC for 12 months,and HLD here today complaining of chest pain - History Source History Provided By: Patient Limitations to Obtaining History: No Limitations - Past Medical History Cardio/Vascular: Yes: CAD, HTN, Hyperlipdemia Pulmonary: Yes: Pulmonary Embolus Renal/: Yes: Renal Failure Endocrine: Yes: Diabetes Mellitus - Alcohol/Substance Use Hx Alcohol Use: No - Smoking History Smoking history: Never smoked Have you smoked in the past 12 months: No Aproximately how many cigarettes per day: 0 Home Medications - Allergies Allergies/Adverse Reactions: Allergies Allergy/AdvReac Type Severity Reaction Status Date / Time No Known Allergies Allergy Verified 02/05/17 16:09 - Home Medications Home Medications: Ambulatory Orders Insulin Pump/Infus. Set/Meter [Accu-Chek Combo System] 1 each MC ASDIR 08/18/15 Ranolazine [Ranexa] 500 mg PO DAILY 08/18/15 Ropinirole HCl [Requip] 1 mg PO DAILY 08/18/15 Metoprolol Succinate [Toprol XL -] 50 mg PO DAILY 12/13/15 Multivit-Min/FA/Lycopen/Lutein [Centrum Silver Tablet] 1 each PO DAILY 12/13/15 Omeprazole [Prilosec] 40 mg PO DAILY 12/13/15 Bisacodyl [Ducodyl] 5 mg PO DAILY 02/05/17 Icosapent Ethyl [Vascepa] 1 gm PO DAILY 02/05/17 Olmesartan Medoxomil 20 mg PO DAILY 02/05/17 Promethazine HCl 25 mg PO DAILY 02/05/17 Tamsulosin HCl [Flomax] 0.4 mg PO DAILY 02/05/17 Torsemide [Demadex] 10 mg PO WEEKLY 02/05/17 Family Disease History - Family Disease History Family History: Unremarkable Review of Systems - Review of Systems Constitutional: reports: No Symptoms Eyes: reports: No Symptoms HENT: reports: No Symptoms, Ringing in Ears Cardiovascular: reports: Chest Pain, Palpitations. denies: Edema, Shortness of Breath Respiratory: reports: No Symptoms Gastrointestinal: reports: No Symptoms Genitourinary: reports: No Symptoms Neurological: reports: No Symptoms Endocrine: reports: No Symptoms Hematology/Lymphatic: reports: No Symptoms Nephrology Consult - Height Height: 5 ft 5 in - Weight Weight: 240 lb - BMI Body Mass Index (BMI): 39.9 - Lab Results CBC,BMP: CBC, BMP 02/06/17 06:10 02/05/17 17:45 Anion Gap: Anion Gap Anion Gap 11 (8-16) 02/05/17 17:45 - Imaging Chest X-ray: Report Reviewed - Physical Examination Vital Signs: Vital Signs Temperature 98.2 F 02/06/17 16:30 Pulse Rate 72 02/06/17 16:30 Respiratory Rate 16 02/06/17 16:30 Blood Pressure 132/68 02/06/17 16:30 O2 Sat by Pulse Oximetry (%) 99 02/06/17 11:45 Constitutional: Yes: Well Nourished, No Distress, Calm Eyes: Yes: Conjunctiva Clear HENT: Yes: Atraumatic, Normocephalic Neck: Yes: Supple Cardiovascular: Yes: Regular Rate and Rhythm, S1, S2. No: Murmur, Rub Respiratory: Yes: Regular, CTA Bilaterally Gastrointestinal: Yes: Normal Bowel Sounds, Soft Renal/: No: Anuria, Bladder Distention Edema: No Neurological: Yes: Alert, Oriented Problem List - Problems (1) Chest pain Code(s): R07.9 - CHEST PAIN, UNSPECIFIED (2) CAD (coronary artery disease) Code(s): I25.10 - ATHSCL HEART DISEASE OF [place] CORONARY ARTERY W/O ANG PCTRS (3) CKD (chronic kidney disease) Code(s): N18.9 - CHRONIC KIDNEY DISEASE, UNSPECIFIED (4) Diabetes mellitus, insulin dependent (IDDM), uncontrolled Code(s): E10.65 - TYPE 1 DIABETES MELLITUS WITH HYPERGLYCEMIA (5) HTN (hypertension) Code(s): I10 - ESSENTIAL (PRIMARY) HYPERTENSION Assessment/Plan 66 year old gentleman with PMhx of, CKD stage 4 (likely diabetic nephropathy), IDDM, CAD s/p stenting, HTN, Obesity s/p gastric bypass, DVT S/P AC for 12 months,and HLD here today complaining of chest pain #CKD stage 4 secondary to diabetic nephropathy Baseline Cr ~2.3 (discharged at 2.3 during last admission) pt follows with Dr. Angel Sharp for his chronic Kidney disease will start isotonic saline at this time off DONTE/ARB trend BUN/Cr hold torsemide for now #Contrast Nephropathy Prophylaxis and risk stratification Risk of CHRISTA is 26% and risk fo immeidate need for dialysis is 1.1% based on CHRISTA calculator developed by Efren et al for isotonic saline will start Mucomyst BID will need monitoring of renal function s/p cardiac cath #Chest pain with ACS Cardiology following for cath on heparin gtt for now Current Medications Acetylcysteine (Mucomyst 20 Oral / Inh Use Only*) 600 mg PO BID [facility] Atorvastatin Calcium (Lipitor -) 80 mg PO HS [facility] Last Admin: 02/06/17 14:45 Dose: 80 mg Bisacodyl (Dulcolax -) 5 mg PO DAILY [facility] Last Admin: 02/06/17 09:59 Dose: 5 mg Clopidogrel Bisulfate (Plavix -) 75 mg PO DAILY [facility] Heparin Sodium (Porcine) (Heparin -) 1,000 unit IVPUSH PRN PRN PRN Reason: Heparin Last Admin: 02/06/17 13:00 Dose: 1,000 unit Heparin Sodium (Porcine) 25, (000 unit/ Sodium Chloride) 500 mls @ 20 mls/hr IV TITR [place]; 1,000 UNIT/HR PRN Reason: Protocol Last Admin: 02/06/17 13:00 Dose: 1,100 unit/hr, 22 mls/hr Sodium Chloride (Normal Saline -) 1,000 mls @ 75 mls/hr IV ASDIR [place] Last Admin: 02/06/17 00:23 Dose: 75 mls/hr Sodium Chloride (Normal Saline -) 1,000 mls @ 83 mls/hr IV ASDIR [facility] Last Admin: 02/06/17 14:45 Dose: 83 mls/hr Metoprolol Succinate (Toprol Xl -) 50 mg PO DAILY [facility] Last Admin: 02/06/17 09:44 Dose: 50 mg Morphine Sulfate (Morphine Sulfate) 2 mg IVPUSH Q5M PRN PRN Reason: PAIN Nitroglycerin (Nitrostat -) 0.3 mg SL Q5M PRN PRN Reason: FOR CHEST PAIN Pantoprazole Sodium (Protonix -) 40 mg PO DAILY [facility] Last Admin: 02/06/17 09:43 Dose: 40 mg Promethazine HCl (Phenergan -) 25 mg PO DAILY [facility] Last Admin: 02/06/17 09:55 Dose: 25 mg Ropinirole HCl (Requip -) 1 mg PO DAILY [facility] Last Admin: 02/06/17 14:45 Dose: 1 mg Tamsulosin HCl (Flomax -) 0.4 mg PO DAILY [facility] Last Admin: 02/06/17 09:59 Dose: 0.4 mg Torsemide (Demadex -) 10 mg PO BIDLASIX [facility] Last Admin: 02/06/17 14:45 Dose: 10 mg
[2017-02-06] MEDS: ACETYLCYSTEINE 20% 200MG/ML 30 ML VIAL *FOR ORAL / INH USE ONLY PO SCH (21:35)
--- NOTE | 2017-02-07 00:17 | CONSULT ---
Consult Consult Specialty:: endocrine Referred by:: laura alberto np Reason for Consultation:: diabetes mellitus - History of Present Illness Chief Complaint: chest pain History of Present Illness: 66M with history of IDDM, CAD s/p stenting, HTN, Obesity s/p gastric bypass, DVT S/P AC for 12 months,and HLD here today complaining of chest pain since this morning. He states that it does not radiate, gets worse with exertion and better with rest. The pain doesn't get worse with inspiration or expiration. per patient he describes the chest pain as tightness which started at rest non radiating, he took ranexa and he says he felt better the pain resolved but after a little while it came back again and then he decided to come to ER.he has had higher sugars ,using bolus with insulin pump to bring sugars down, denies hypoglycemia - Past Medical History Cardio/Vascular: Yes: CAD, HTN, Hyperlipdemia Pulmonary: Yes: Pulmonary Embolus Renal/: Yes: Renal Failure Endocrine: Yes: Diabetes Mellitus - Alcohol/Substance Use Hx Alcohol Use: No - Smoking History Smoking history: Never smoked Have you smoked in the past 12 months: No Aproximately how many cigarettes per day: 0 Home Medications - Allergies Allergies/Adverse Reactions: Allergies Allergy/AdvReac Type Severity Reaction Status Date / Time No Known Allergies Allergy Verified 02/05/17 16:09 - Home Medications Home Medications: Ambulatory Orders Insulin Pump/Infus. Set/Meter [Accu-Chek Combo System] 1 each ASDIR 08/18/15 Ranolazine [Ranexa] 500 mg PO DAILY 08/18/15 Ropinirole HCl [Requip] 1 mg PO DAILY 08/18/15 Metoprolol Succinate [Toprol XL -] 50 mg PO DAILY 12/13/15 Multivit-Min/FA/Lycopen/Lutein [Centrum Silver Tablet] 1 each PO DAILY 12/13/15 Omeprazole [Prilosec] 40 mg PO DAILY 12/13/15 Bisacodyl [Ducodyl] 5 mg PO DAILY 02/05/17 Icosapent Ethyl [Vascepa] 1 gm PO DAILY 02/05/17 Olmesartan Medoxomil 20 mg PO DAILY 02/05/17 Promethazine HCl 25 mg PO DAILY 02/05/17 Tamsulosin HCl [Flomax] 0.4 mg PO DAILY 02/05/17 Torsemide [Demadex] 10 mg PO WEEKLY 02/05/17 Review of Systems - Review of Systems Constitutional: reports: Lethargy, Weakness Eyes: reports: No Symptoms HENT: reports: No Symptoms Neck: reports: No Symptoms Cardiovascular: reports: Shortness of Breath Respiratory: reports: Exercise Intolerance, SOB on Exertion Gastrointestinal: reports: Bloating Genitourinary: reports: No Symptoms Musculoskeletal: reports: Muscle Cramps, Muscle Weakness Neurological: reports: Weakness Endocrine: reports: Unexplained Weight Gain Physical Exam Vital Signs: Vital Signs Temperature 100.2 F H 02/06/17 22:00 Pulse Rate 81 02/06/17 22:00 Respiratory Rate 20 02/06/17 22:00 Blood Pressure 109/60 02/06/17 22:00 O2 Sat by Pulse Oximetry (%) 98 02/06/17 21:00 Constitutional: Yes: Anxious Eyes: Yes: EOM Intact HENT: Yes: Normocephalic Neck: Yes: Trachea Midline Cardiovascular: Yes: Regular Rate and Rhythm Respiratory: Yes: CTA Bilaterally Gastrointestinal: Yes: Normal Bowel Sounds ...Rectal Exam: Yes: Deferred Renal/: Yes: WNL Breast(s): Yes: WNL Musculoskeletal: Yes: Muscle Weakness Extremities: Yes: WNL Edema: Yes Integumentary: Yes: WNL Wound/Incision: Yes: Well Approximated Neurological: Yes: WNL, Alert, Oriented Labs: CBC, BMP 02/06/17 06:10 02/05/17 17:45 Problem List - Problems (1) Chest pain Code(s): R07.9 - CHEST PAIN, UNSPECIFIED Qualifiers: Chest pain type: unspecified Qualified Code(s): R07.9 - Chest pain, unspecified (2) Acute renal insufficiency Code(s): N28.9 - DISORDER OF KIDNEY AND URETER, UNSPECIFIED (3) Bilateral leg edema Code(s): R60.0 - LOCALIZED EDEMA (4) CAD (coronary artery disease) Code(s): I25.10 - ATHSCL HEART DISEASE OF [place] CORONARY ARTERY W/O ANG PCTRS (5) Controlled type 1 diabetes mellitus with diabetic neuropathy Code(s): E10.40 - TYPE 1 DIABETES MELLITUS WITH DIABETIC NEUROPATHY, UNSP (6) DVT (deep venous thrombosis) Code(s): I82.409 - ACUTE EMBOLISM AND THOMBOS UNSP DEEP VN UNSP LOWER EXTREMITY Assessment/Plan Current Active Problems Chest pain (Acute) diabetes mellitus iddm hyperglycemia cad htn ashd hyperlipidemia Abnormal Lab Results 02/06/17 02/06/17 02/06/17 06:10 06:10 06:10 RBC 3.50 L Hgb 11.3 L Hct 33.0 L Monocytes % 11.6 H PTT (Actin FS) Magnesium 1.7 L Troponin I 10.60 H* D 02/06/17 02/06/17 02/06/17 11:50 11:50 20:30 RBC Hgb Hct Monocytes % PTT (Actin FS) 47.1 H D Magnesium Troponin I 12.50 H* 9.19 H* 02/06/17 20:30 RBC Hgb Hct Monocytes % PTT (Actin FS) 44.5 H Magnesium Troponin I Laboratory Results - last 24 hr 02/05/17 02/05/17 02/06/17 18:00 22:17 06:10 WBC 8.4 RBC 3.50 L Hgb 11.3 L Hct 33.0 L MCV 94.2 MCH 32.2 MCHC 34.2 RDW 13.4 Plt Count 196 MPV 7.8 Neutrophils % 48.3 Lymphocytes % 36.4 Monocytes % 11.6 H Eosinophils % 3.0 Basophils % 0.7 PTT (Actin FS) POC Glucometer [phone] Magnesium Troponin I 02/06/17 02/06/17 02/06/17 06:10 06:10 11:50 WBC RBC Hgb Hct MCV MCH MCHC RDW Plt Count MPV Neutrophils % Lymphocytes % Monocytes % Eosinophils % Basophils % PTT (Actin FS) POC Glucometer Magnesium 1.7 L Troponin I 10.60 H* D 12.50 H* 02/06/17 02/06/17 02/06/17 11:50 17:24 20:30 WBC RBC Hgb Hct MCV MCH MCHC RDW Plt Count MPV Neutrophils % Lymphocytes % Monocytes % Eosinophils % Basophils % PTT (Actin FS) 47.1 H D POC Glucometer 204 Magnesium Troponin I 9.19 H* 02/06/17 20:30 WBC RBC Hgb Hct MCV MCH MCHC RDW Plt Count MPV Neutrophils % Lymphocytes % Monocytes % Eosinophils % Basophils % PTT (Actin FS) 44.5 H POC Glucometer Magnesium Troponin I plan: concur with current plan; cardiac intervention bgm qid novolog with insulin pump therapy Current Medications Generic Name Dose Route Start Last Admin Trade Name Freq PRN Reason Stop Dose Admin Acetylcysteine 600 mg 02/06/17 16:33 02/06/17 21:35 Mucomyst 20 Oral / Inh Use Only* PO 600 mg BID [place] Administration Atorvastatin Calcium 80 mg 02/06/17 09:30 02/06/17 21:34 Lipitor - PO 80 mg HS [place] Administration Bisacodyl 5 mg 02/06/17 10:00 02/06/17 09:59 Dulcolax - PO 5 mg DAILY [place] Administration Clopidogrel Bisulfate 75 mg 02/07/17 10:00 Plavix - PO DAILY [place] Heparin Sodium (Porcine) 1,000 unit 02/05/17 22:03 02/06/17 13:00 Heparin - IVPUSH 1,000 unit PRN PRN Administration Heparin Heparin Sodium (Porcine) 25, 500 mls @ 20 mls/hr 02/05/17 22:15 02/06/17 23: 16 000 unit/ Sodium Chloride IV 1,200 unit/hr TITR [place] 24 mls/hr Protocol Administration 1,000 UNIT/HR Sodium Chloride 1,000 mls @ 75 mls/hr 02/05/17 23:45 02/06/17 23:17 Normal Saline - IV 75 mls/hr ASDIR [place] Administration Sodium Chloride 1,000 mls @ 83 mls/hr 02/06/17 11:45 02/06/17 14:45 Normal Saline - IV 83 mls/hr ASDIR [place] Administration Metoprolol Succinate 50 mg 02/06/17 10:00 02/06/17 09:44 Toprol Xl - PO 50 mg DAILY [place] Administration Morphine Sulfate 2 mg 02/05/17 23:31 Morphine Sulfate IVPUSH Q5M PRN PAIN Nitroglycerin 0.3 mg 02/05/17 23:31 Nitrostat - SL Q5M PRN FOR CHEST PAIN Pantoprazole Sodium 40 mg 02/05/17 23:45 02/06/17 09:43 Protonix - PO 40 mg DAILY [place] Administration Promethazine HCl 25 mg 02/06/17 10:00 02/06/17 09:55 Phenergan - PO 25 mg DAILY [place] Administration Ropinirole HCl 1 mg 02/06/17 10:00 02/06/17 14:45 Requip - PO 1 mg DAILY [place] Administration Tamsulosin HCl 0.4 mg 02/06/17 10:00 02/06/17 09:59 Flomax - PO 0.4 mg DAILY [place] Administration
--- NOTE | 2017-02-07 08:30 | PN ---
Progress Note, Physician History of Present Illness: no cp or sob - Current Medication List Current Medications: Active Medications Acetylcysteine (Mucomyst 20 Oral / Inh Use Only*) 600 mg PO BID [facility] Last Admin: 02/06/17 21:35 Dose: 600 mg Atorvastatin Calcium (Lipitor -) 80 mg PO HS [facility] Last Admin: 02/06/17 21:34 Dose: 80 mg Bisacodyl (Dulcolax -) 5 mg PO DAILY [facility] Last Admin: 02/06/17 09:59 Dose: 5 mg Clopidogrel Bisulfate (Plavix -) 75 mg PO DAILY [facility] Heparin Sodium (Porcine) (Heparin -) 1,000 unit IVPUSH PRN PRN PRN Reason: Heparin Last Admin: 02/06/17 13:00 Dose: 1,000 unit Heparin Sodium (Porcine) 25, (000 unit/ Sodium Chloride) 500 mls @ 20 mls/hr IV TITR [place]; 1,000 UNIT/HR PRN Reason: Protocol Last Admin: 02/06/17 23:16 Dose: 1,200 unit/hr, 24 mls/hr Sodium Chloride (Normal Saline -) 1,000 mls @ 75 mls/hr IV ASDIR [facility] Last Admin: 02/06/17 23:17 Dose: 75 mls/hr Sodium Chloride (Normal Saline -) 1,000 mls @ 83 mls/hr IV ASDIR [facility] Last Admin: 02/06/17 14:45 Dose: 83 mls/hr Metoprolol Succinate (Toprol Xl -) 50 mg PO DAILY [facility] Last Admin: 02/06/17 09:44 Dose: 50 mg Morphine Sulfate (Morphine Sulfate) 2 mg IVPUSH Q5M PRN PRN Reason: PAIN Nitroglycerin (Nitrostat -) 0.3 mg SL Q5M PRN PRN Reason: FOR CHEST PAIN Pantoprazole Sodium (Protonix -) 40 mg PO DAILY [facility] Last Admin: 02/06/17 09:43 Dose: 40 mg Promethazine HCl (Phenergan -) 25 mg PO DAILY [facility] Last Admin: 02/06/17 09:55 Dose: 25 mg Ropinirole HCl (Requip -) 1 mg PO DAILY [facility] Last Admin: 02/06/17 14:45 Dose: 1 mg Tamsulosin HCl (Flomax -) 0.4 mg PO DAILY [facility] Last Admin: 02/06/17 09:59 Dose: 0.4 mg - Objective Vital Signs: Vital Signs Temperature 99.3 F 02/07/17 06:00 Pulse Rate 86 02/07/17 06:00 Respiratory Rate 20 02/07/17 06:00 Blood Pressure 118/72 02/07/17 06:00 O2 Sat by Pulse Oximetry (%) 98 02/06/17 21:00 Cardiovascular: Yes: Murmur, S1, S2 Respiratory: Yes: Regular, CTA Bilaterally Gastrointestinal: Yes: Normal Bowel Sounds, Soft Edema: No Labs: CBC, BMP 02/06/17 06:10 02/05/17 17:45 INR, PTT INR 0.96 (0.82-1.09) 02/05/17 17:10 Assessment/Plan - Problems (1) Chest pain Assessment/Plan: postive troponin heparin drip tele continue metoprolol, statin and aspirin hold Ranexa,ACEI,plavix for now per cardio notes Code(s): R07.9 - CHEST PAIN, UNSPECIFIED (2) CKD (chronic kidney disease) Assessment/Plan: will get renal to see patient hold ACEI Code(s): N18.9 - CHRONIC KIDNEY DISEASE, UNSPECIFIED (3) 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
[2017-02-07 08:40] VITALS: BP 128/54; PULSE 88; TEMP 98.4
[2017-02-07 08:43] LABS: BASOPHIL 0.6 % (0-2.0); EOSINOPHIL 2.1 % (0-4.5); MCH 32.2 pg (25.7-33.7); MCHC 33.8 g/dl (32.0-35.9); MEAN CELL VOLUME 95.2 fl (80-96); MEAN PLT VOLUME 8.2 fl (7.5-11.1); NEUTROPHILS 64.3 % (42.8-82.8); PLATELET COUNT 203 K/MM3 (134-434); RDW 13.6 % (11.9-15.9); WHITE BLOOD COUNT 8.3 K/mm3 (4.0-10.0)
[2017-02-07] MEDS ORDERED: PT OWN MED DRAWER 7, Y5N ONE (08:47)
[2017-02-07] MEDS: TAMSULOSIN HCL 0.4 MG CAP.ER.24H (FP) PO SCH (09:26)
[2017-02-07] MEDS: BISACODYL 5 MG TABLET.DR (FP) PO SCH (09:26)
[2017-02-07] MEDS: METOPROLOL SUCCINATE 50 MG TAB.SR.24H (FP) PO SCH (09:26)
[2017-02-07] MEDS: PANTOPRAZOLE 40 MG TABLET (FP) PO SCH (09:26)
[2017-02-07] MEDS: ACETYLCYSTEINE 20% 200MG/ML 30 ML VIAL *FOR ORAL / INH USE ONLY PO SCH (09:26)
[2017-02-07] MEDS: PROMETHAZINE HCL 25 MG TABLET PO SCH (09:27)
[2017-02-07] MEDS: rOPINIRole HCL 1 MG TABLET (FP) PO SCH (09:27)
--- NOTE | 2017-02-07 09:57 | PN ---
Progress Note (short form) - Note Progress Note: Chief Complaint: nstemi History of Present Illness: S: no cp, palps, dizziness, sob. On IVF overnight for prehydration. Current Medications Acetylcysteine (Mucomyst 20 Oral / Inh Use Only*) 600 mg PO BID [facility] Last Admin: 02/07/17 09:26 Dose: 600 mg Atorvastatin Calcium (Lipitor -) 80 mg PO HS [facility] Last Admin: 02/06/17 21:34 Dose: 80 mg Bisacodyl (Dulcolax -) 5 mg PO DAILY [facility] Last Admin: 02/07/17 09:26 Dose: 5 mg Clopidogrel Bisulfate (Plavix -) 75 mg PO DAILY [facility] Last Admin: 02/07/17 09:26 Dose: 75 mg Heparin Sodium (Porcine) (Heparin -) 1,000 unit IVPUSH PRN PRN PRN Reason: Heparin Last Admin: 02/06/17 13:00 Dose: 1,000 unit Heparin Sodium (Porcine) 25, (000 unit/ Sodium Chloride) 500 mls @ 20 mls/hr IV TITR [place]; 1,000 UNIT/HR PRN Reason: Protocol Last Admin: 02/06/17 23:16 Dose: 1,200 unit/hr, 24 mls/hr Sodium Chloride (Normal Saline -) 1,000 mls @ 75 mls/hr IV ASDIR [place] Last Admin: 02/06/17 23:17 Dose: 75 mls/hr Sodium Chloride (Normal Saline -) 1,000 mls @ 83 mls/hr IV ASDIR [facility] Last Admin: 02/06/17 14:45 Dose: 83 mls/hr Metoprolol Succinate (Toprol Xl -) 50 mg PO DAILY [facility] Last Admin: 02/07/17 09:26 Dose: 50 mg Morphine Sulfate (Morphine Sulfate) 2 mg IVPUSH Q5M PRN PRN Reason: PAIN Nitroglycerin (Nitrostat -) 0.3 mg SL Q5M PRN PRN Reason: FOR CHEST PAIN Pantoprazole Sodium (Protonix -) 40 mg PO DAILY [facility] Last Admin: 02/07/17 09:26 Dose: 40 mg Promethazine HCl (Phenergan -) 25 mg PO DAILY [facility] Last Admin: 02/07/17 09:27 Dose: 25 mg Ropinirole HCl (Requip -) 1 mg PO DAILY [facility] Last Admin: 02/07/17 09:27 Dose: 1 mg Tamsulosin HCl (Flomax -) 0.4 mg PO DAILY [facility] Last Admin: 02/07/17 09:26 Dose: 0.4 mg Vital Signs - 24 hr 02/06/17 02/06/17 02/06/17 11:45 16:30 21:00 Temperature 98.2 F Pulse Rate 68 72 Respiratory 17 16 Rate Blood Pressure 118/58 132/68 O2 Sat by Pulse 99 98 Oximetry (%) 02/06/17 02/07/17 02/07/17 22:00 02:00 06:00 Temperature 100.2 F H 98.3 F 99.3 F Pulse Rate 81 79 86 Respiratory 20 20 20 Rate Blood Pressure 109/60 102/48 118/72 O2 Sat by Pulse Oximetry (%) 02/07/17 08:00 Temperature 98.4 F Pulse Rate 88 Respiratory 16 Rate Blood Pressure 128/54 O2 Sat by Pulse Oximetry (%) Intake & Output 02/05/17 02/06/17 02/07/17 02/08/17 07:59 07:59 07:59 07:59 Intake Total 1188 Balance 1188 Weight 260 lb 240 lb Constitutional: Yes: Well Nourished, No Distress Eyes: No: Sclera Icterus HENT: No: Nasal Congestion Neck: No: Decreased ROM Respiratory: Yes: CTA Bilaterally. No: Accessory Muscle Use, Rales, Wheezes Gastrointestinal: Yes: Normal Bowel Sounds. No: Distention, Hepatomegaly, Palpable Mass, Tenderness Cardiovascular: Yes: Regular Rate and Rhythm JVD: No Carotid Bruit: No PMI: Non-Displaced Heart Sounds: Yes: S1, S2. No: Gallop Murmur: No: Systolic Murmur, Diastolic Murmur Musculoskeletal: Yes: Other (No kyphosis) Extremities: No: Cold, Cyanosis Edema: No Peripheral Pulses: 2+ Left Carotid, 2+ Right Carotid, 2+ Left Doralis Pedis, 2+ Right Dorsalis Pedis Integumentary: No: Jaundice Neurological: Yes: Alert, Oriented (x3) Psychiatric: No: Agitated - Other Data Labs, Other Data: CBC, 02/07/17 08:00 BMP Pending Laboratory Tests 02/06/17 02/06/17 11:50 20:30 Troponin I 12.50 H* 9.19 H* Assessment/Plan tele: sr, occ pac's, pvcs ECG #1 (02/05): NSR, LAFB, no path q's; no ST-T abn #2 (02/05): no change #3 (02/06): no change Echo 08/09: nl LV/EF; nl RV; nl LA; trace MR; nuclear stress test 06/09 report (outside facility, in [place]): no STs; mid- basal IW ischemia MPI 01/30/17 ([facility]): no STs; no ischemia; nl EF (89%) NSTEMI on h/o prior CAD: -has h/o chronic angina (persisted after last PCI 2009), stable sx's improved signif on metopr and renexa as outpt recently -developed persistent CP on DOA 02/05 -no ekg changes x3 -ruling in, now with troponin rising briskly to 10 -LCX lesion more likely here than balanced (multivessel) ischemia in light of normal (hyperdynamic) EF on mpi, though the latter is possible and pt at risk for MVDz -hi risk for CHRISTA. after d/w his outpt life underwriter dr charles, his creat is close to baseline though slightly above last value 04/12 (only sees pt once a year as he is in [place] half the year) and same as 11/[address] riggins (creat 2.74 then)--? acute vs more likely gradual DM nephropathy progression accounts for the slightly higher creat -he thinks significant improvement in renal fxn pre-cath to ameliorate CHRISTA risk is not likely, and rec's the standard gerber-cath prophylaxis -i d/w'd pt and the small but finite risk of MVDz here, which is associated with signif worse outcome (MIs and ) with med mgmt vs revascularization in him; also d/w'd him the risks of CHRISTA and their estimated probability. -he verbalized understanding of the discussion and stated that he wants to be aggressive and prolong life expectancy/minimize CV risks as much as possible, hence wishes to pursue cath. -d/w'd dr lam interventionalist--will plan to hydrate overnight and take for cath tomorrow if remains clinically without unstable sx's -received plavix 300mg x1 in ER,on 02/05, then 600mg 02/06 am (?). -cont asa, UFH gtt -per interventionalist, will cont plavix since he was already loaded -cont home atorva 80, metopr 50 -hold ARB (? on at home--ordered here) given hi risks for acute worsening renal fxn -hold home ranexa (on 1000 bid) - 02/07: troponins trending down. Transfer to [facility] for cath today. CKD: -prior creat range here 2015 = 1.9-2.4 -04/12 was 2.6 -currently with creat 2.8 -hydration for CHRISTA prophlxs as above HTN: -BP controlled on metoprolol, con't DM: -A1c 9.0 in 04/12, ? more recent -per pmd
[2017-02-07] MEDS ORDERED: CLOPIDOGREL BISULFATE 75 MG TABLET (FP) PO SCH (10:00)
[2017-02-07 10:04] LABS: ALBUMIN 2.6 g/dl (3.4-5.0); ANION GAP 9 (8-16); BILIRUBIN,TOTAL 0.6 mg/dL (0.2-1.0); CALCIUM 7.6 mg/dL (8.5-10.1); CO2 24 mmol/L (21-32); CREATININE 2.4 mg/dL (0.7-1.3); GLUCOSE,RANDOM 153 mg/dL (74-106); SGOT/AST 40 U/L (15-37); SGPT/ALT 24 U/L (12-78); TOT PROT 5.6 g/dl (6.4-8.2)
[2017-02-07 10:51] LABS: ALK PHOS 62 U/L (45-117); CPK 219 IU/L (39-308); FREE T4 0.96 ng/dl (0.76-1.16)
[2017-02-07 11:50] LABS: TROPONIN I 7.83 ng/ml (0.00-0.05)
== END 2017-02-07 11:19 | disposition short-term general hospital (02) | DRG 281 ==
LOC: JER 15:59 → JERBED 19:18 → OBSVTOIN 19:18 → J4W 02-06 15:50
PROVIDERS: ADMIT Family Medicine; ATTEND Family Medicine
DX: I21.4 Non-ST elevation (NSTEMI) myocardial infarction (principal); N18.4 Chronic kidney disease, stage 4 (severe); I12.9 Hypertensive chronic kidney disease with stage 1 through stage 4 chronic kidney disease, or unspecified chronic kidney disease; E10.22 Type 1 diabetes mellitus with diabetic chronic kidney disease; Z79.4 Long term (current) use of insulin; E66.9 Obesity, unspecified; Z68.39 Body mass index [BMI] 39.0-39.9, adult; E78.5 Hyperlipidemia, unspecified; I25.119 Atherosclerotic heart disease of native coronary artery with unspecified angina pectoris; Z98.61 Coronary angioplasty status; E10.40 Type 1 diabetes mellitus with diabetic neuropathy, unspecified; R60.0 Localized edema; R07.9 Chest pain, unspecified; E03.9 Hypothyroidism, unspecified; E10.21 Type 1 diabetes mellitus with diabetic nephropathy
CPT/HCPCS: 36415; 71010-TC; 80053; 82550; 82553; 83036; 83735; 84439; 84443; 84484; 85025; 85027; 85610; 85730; 93005; 93010; 93306-TC; 93970-TC; 99285-25; J1644

== ENCOUNTER 2018-07-12 04:53 | Emergency (ER) | payer OTHER, BC ==
[2018-07-12] MEDS ORDERED: SODIUM CHLORIDE 1,000 ML IV STA (05:09)
[2018-07-12 05:20] VITALS: BMI 37.8
--- NOTE | 2018-07-12 05:22 | PDOC ---
History of Present Illness - General Chief Complaint: Diarrhea Stated Complaint: DIARRHEA/PAIN Time Seen by Provider: 07/12/18 05:08 - History of Present Illness Initial Comments: 07/12/18 05:53 68 yo M with h/o HTN, HLD, DM, CAD, CKD, who p/w watery stools. Patient reports 2 days of loose watery, non bloody, non-mucoid stools x3-4 per day. Patient returned from [place] x 1 week following 1 year residence. Denies associated symptoms. Denies symptom management. Nml PO intake and denies abdominal pain, vomiting/nausea. No recent sick contacts. Patient denies GUTIERREZ, vision change, palpitations, cough, wheezing, orthopena, PND , leg swelling/pain, N/V, F,C, CP, SOB, urinary complaints, hematuria, BPR, abdominal pain, constipation, lightheadedness, weakness, sensory changes. PMHx: as noted above Surgical: Denies abdominal surgery ROS: as noted SHx: Denies Etoh, IVDA, tobacco use Allergies: NKDA Past History - Past Medical History Allergies/Adverse Reactions: Allergies Allergy/AdvReac Type Severity Reaction Status Date / Time No Known Allergies Allergy Verified 07/12/18 05:31 Home Medications: Ambulatory Orders Insulin Pump/Infus. Set/Meter [Accu-Chek Combo System] 1 each ASDIR 08/18/15 Ranolazine [Ranexa] 500 mg PO DAILY 08/18/15 Ropinirole HCl [Requip] 1 mg PO DAILY 08/18/15 Metoprolol Succinate [Toprol XL -] 50 mg PO DAILY 12/13/15 Multivit-Min/FA/Lycopen/Lutein [Centrum Silver Tablet] 1 each PO DAILY 12/13/15 Omeprazole [Prilosec] 40 mg PO DAILY 12/13/15 Bisacodyl [Ducodyl] 5 mg PO DAILY 02/05/17 Icosapent Ethyl [Vascepa] 1 gm PO DAILY 02/05/17 Olmesartan Medoxomil 20 mg PO DAILY 02/05/17 Promethazine HCl 25 mg PO DAILY 02/05/17 Tamsulosin HCl [Flomax] 0.4 mg PO DAILY 02/05/17 Torsemide [Demadex] 10 mg PO WEEKLY 11/12/17 Ciprofloxacin [Cipro -] 750 mg PO ONCE #6 tablet MDD 3 tab 07/12/18 Anemia: No Asthma: No Cancer: No Cardiac Disorders: Yes (CAD, [place] 2005,ANGINA) CVA: No COPD: No CHF: No DVT: No Dementia: No Diabetes: Yes GI Disorders: Yes (Ulcerative colitis, GERD) Disorders: Yes (Renal Insufficiency) HTN: Yes Hypercholesterolemia: Yes Liver Disease: No Seizures: No Thyroid Disease: Yes (hypothyroid) - Surgical History Abdominal Surgery: Yes (gastric bypass 2005) Appendectomy: No Cardiac Surgery: Yes (stents x4) Cholecystectomy: No Gastric Stapling: Yes (GASTRIC BYPASS 2005) Lung Surgery: No Neurologic Surgery: No Orthopedic Surgery: No - Immunization History Immunization Up to Date: No - Suicide/Smoking/Psychosocial Hx Smoking Status: No Smoking History: Unknown if ever smoked Have you smoked in the past 12 months: No Number of Cigarettes Smoked Daily: 0 Information on smoking cessation initiated: No Hx Alcohol Use: No Drug/Substance Use Hx: No Substance Use Type: None Hx Substance Use Treatment: No Review of Systems - Review of Systems Comments:: 07/12/18 05:59 GENERAL/CONSTITUTIONAL: No fever or chills. No weakness. HEAD, EYES, EARS, NOSE AND THROAT: No change in vision. No ear pain or discharge. No sore throat. CARDIOVASCULAR: No chest pain or shortness of breath RESPIRATORY: No cough, wheezing, or hemoptysis. GASTROINTESTINAL: + Diarrhea. No nausea, vomiting, constipation. GENITOURINARY: No dysuria, frequency, or change in urination. MUSCULOSKELETAL: No joint or muscle swelling or pain. No neck or back pain. SKIN: No rash NEUROLOGIC: No headache, vertigo, loss of consciousness, or change in strength/ sensation. ENDOCRINE: No increased thirst. No abnormal weight change HEMATOLOGIC/LYMPHATIC: No anemia, easy bleeding, or history of blood clots. ALLERGIC/IMMUNOLOGIC: No hives or skin allergy. *Physical Exam - Vital Signs Last Vital Signs Temp Pulse Resp BP Pulse Ox 97.8 F 65 20 134/93 100 07/12/18 05:15 07/12/18 05:15 07/12/18 05:15 07/12/18 05:15 07/12/18 05:15 - Physical Exam Comments: 07/12/18 05:59 GENERAL: Awake, alert, and fully oriented, in no acute distress HEAD: No signs of trauma, normocephalic, atraumatic EYES: PERRLA, EOMI, sclera anicteric, conjunctiva clear ENT: Hearing grossly normal, nares patent, oropharynx clear without exudates. Moist mucosa NECK: Normal ROM, supple, no lymphadenopathy, JVD, or masses LUNGS: No distress, speaks full sentences, clear to auscultation bilaterally HEART: Regular rate and rhythm, normal S1 and S2, no murmurs, rubs or gallops, peripheral pulses normal and equal bilaterally. ABDOMEN: Soft, nontender, normoactive bowel sounds. No guarding, no rebound. No masses EXTREMITIES : Normal inspection, Normal range of motion, no edema. No clubbing or cyanosis. NEUROLOGICAL: Cranial nerves II through XII grossly intact. Normal speech, normal gait, no focal sensorimotor deficits SKIN: Warm, Dry, normal turgor, no rashes or lesions noted ED Treatment Course - LABORATORY CBC & Chemistry Diagram: 07/12/18 05:34 07/12/18 05:34 Medical Decision Making - Medical Decision Making 07/12/18 05:57 68 yo M with h/o HTN, HLD, DM, CAD, CKD, who p/w watery stools. Vitals wnl, AF, A&Ox4. Physical exam unremarkable. Will consider acute enteritis, travelers diarrhea, biliary dz., colitis, pancreatitis, malabsorption disorder, hepatitis. Will assess for hypoglycemia, electrolyte abnml, metabolic and toxic derangements, acid-base disturbances, infection. Will provide IVF resuscitation and reassess. ED Course: 07/12/18 06:00 NS 2 L Ciprofloxacin 750 mg Ciprofloxacin sent to pharmacy Pt. tolerating PO intake 07/12/18 06:30 Patient pending CMP results, CXR, and fluid administration Currently stable Endorsed to night team 07/12/18 06:45 Laboratory Tests 07/12/18 05:34 WBC 6.4 Hgb 12.1 Hct 35.6 Plt Count 217 *DC/Admit/Observation/Transfer Diagnosis at time of Disposition: Diarrhea Qualifiers: Diarrhea type: unspecified type Qualified Code(s): R19.7 - Diarrhea, unspecified - Discharge Dispostion Condition at time of disposition: Stable Decision to Admit order: No - Prescriptions Prescriptions: Ciprofloxacin [Cipro -] 750 mg PO ONCE #6 tablet MDD 3 tab - Referrals Referrals: Pavel Myers MD [Primary Care Provider] - - Patient Instructions Printed Discharge Instructions: DI for Diarrhea and Traveler's Diarrhea -- Adult Additional Instructions: Please return to the emergency department with any new or worsening symptoms or concerns. Please follow up with your primary care physician within 72 hours. Please take 750 mg Ciprofloxacin for 2 days. - Post Discharge Activity
[2018-07-12 05:51] LABS: BASO % 0.9 % (0-2.0); EOS % 5.1 % (0-4.5); HEMATOCRIT 35.6 % (35.4-49); HEMOGLOBIN 12.1 GM/dL (11.7-16.9); LYMPH % 29.3 % (8-40); MCH 30.7 pg (25.7-33.7); MEAN CELL VOLUME 90.5 fl (80-96); MEAN PLT VOLUME 8.2 fl (7.5-11.1); NEUT % 50.7 % (42.8-82.8); PLATELET COUNT 217 K/MM3 (134-434); RBC 3.94 M/mm3 (4.00-5.60); RDW 13.9 % (11.9-15.9); WHITE BLOOD COUNT 6.4 K/mm3 (4.0-10.0)
--- NOTE | 2018-07-12 05:51 | PDOC ---
Attending Attestation - Resident Resident Name: ChristopherGordoKeegan - ED Attending Attestation I have performed the following: I have examined & evaluated the patient, The case was reviewed & discussed with the resident, I agree w/resident's findings & plan - HPI HPI: 07/12/18 05:54 68-year-old male with history of NSTEMI, CAD, CK D, hypertension or diabetes presenting with diarrhea 2-3 days. Patient describes having episodes of watery dark stool 2-3 episodes per day. Recently traveled and return from [place] about one week ago, where he was staying for the past 1 year, no other sick contacts including his close family members. Denies any suspicious food intake. No nausea vomiting, fevers or chills, chest pain or shortness of breath. 07/12/18 07:33 - Physicial Exam PE: 07/12/18 05:55 Agree with the resident's HPI and PE as documented in the electronic medical record. NAD, well appearing, PERRL, EOMI, MMM, nl conjunctiva, anicteric; neck supple. lungs clear, RRR, abdomen soft nontender. very obese, insulin pump and tubing in place. PRATT x4, no focal neuro deficits. No peripheral edema. normal color for ethnicity, WWP. - Medical Decision Making 07/12/18 05:56 History of physical examination as documented. Vital signs reviewed, within normal limits. No fever, no systemic symptoms. Differential diagnosis includes hepatitis, pancreatitis, dehydration, electrolyte/metabolic derangements, gastroenteritis, colitis, food poisoning, traveler's diarrhea Basic laboratory workup, CBC and chemistry wnl, cr at baseline LFTs and lipase normal most likely travelers diarrhea, rx cipro x 3 days. first dose here soft BP here, given IVF hydration and reassess, dispo pending reeval. 07/12/18 07:33
[2018-07-12] MEDS ORDERED: CIPROFLOXACIN 500 MG TABLET (RESTRICTED TO ID) PO ONE (06:05)
[2018-07-12] MEDS ORDERED: CIPROFLOXACIN 250 MG TABLET (RESTRICTED TO ID) PO ONE (06:05)
[2018-07-12 06:17] LABS: LIPASE 148 U/L (73-393)
[2018-07-12 07:30] LABS: ALBUMIN 3.4 g/dl (3.4-5.0); ALK PHOS 106 U/L (45-117); ANION GAP 10 MMOL/L (8-16); BILIRUBIN,TOTAL 0.3 mg/dL (0.2-1); BLOOD UREA NITROGEN 64 mg/dL (7-18); CALCIUM 8.8 mg/dL (8.5-10.1); CHLORIDE 106 mmol/L (98-107); CO2 21 mmol/L (21-32); POTASSIUM 4.1 mmol/L (3.5-5.1); SGOT/AST 17 U/L (15-37); SGPT/ALT 10 U/L (13-61); SODIUM 137 mmol/L (136-145); TOT PROT 7.2 g/dl (6.4-8.2)
[2018-07-12 07:35] LABS: GLUCOSE,RANDOM 308 mg/dL (74-106)
--- NOTE | 2018-07-12 08:41 | PDOC ---
*Physical Exam - Vital Signs Last Vital Signs Temp Pulse Resp BP Pulse Ox 97.8 F 71 18 90/70 100 07/12/18 05:15 07/12/18 05:55 07/12/18 05:55 07/12/18 05:55 07/12/18 05:55 - Physical Exam General Appearance: Yes: Nourished Neck: positive: Normal Thyroid Respiratory/Chest: positive: Lungs Clear, Normal Breath Sounds Cardiovascular: positive: Regular Rhythm, Regular Rate, S1, S2 Gastrointestinal/Abdominal: positive: Normal Bowel Sounds, Soft. negative: Tender Musculoskeletal: negative: CVA Tenderness ED Treatment Course - LABORATORY CBC & Chemistry Diagram: 07/12/18 05:34 07/12/18 05:34 - ADDITIONAL ORDERS Additional order review: Laboratory Results 07/12/18 05:34 Sodium 137 Potassium 4.1 Chloride 106 Carbon Dioxide 21 Anion Gap 10 BUN 64 H Creatinine 3.0 H Creat Clearance w eGFR 20.98 Random Glucose 308 H* Calcium 8.8 Total Bilirubin 0.3 AST 17 ALT 10 L Alkaline Phosphatase 106 Total Protein 7.2 Albumin 3.4 Lipase 148 07/12/18 05:34 RBC 3.94 L MCV 90.5 MCHC 34.0 RDW 13.9 MPV 8.2 Neutrophils % 50.7 Lymphocytes % 29.3 Monocytes % 14.0 H Eosinophils % 5.1 H Basophils % 0.9 - Medications Given in the ED: ED Medications Discontinued Medications Generic Name Dose Route Start Last Admin Trade Name Freq PRN Reason Stop Dose Admin Ciprofloxacin 500 mg 07/12/18 06:05 07/12/18 07:01 Cipro (Restricted To Id) PO 07/12/18 06:06 500 mg ONCE ONE Administration Ciprofloxacin 250 mg 07/12/18 06:05 07/12/18 07:01 Cipro (Restricted To Id) PO 07/12/18 06:06 250 mg ONCE ONE Administration Sodium Chloride 1,000 mls @ 1,000 mls/hr 07/12/18 05:09 07/12/18 05:55 Normal Saline - IV 07/12/18 06:08 1,000 mls/hr ASDIR STA Administration *DC/Admit/Observation/Transfer Diagnosis at time of Disposition: Diarrhea Qualifiers: Diarrhea type: unspecified type Qualified Code(s): R19.7 - Diarrhea, unspecified - Discharge Dispostion Disposition: HOME Condition at time of disposition: Stable Decision to Admit order: No - Prescriptions Prescriptions: Ciprofloxacin [Cipro -] 750 mg PO ONCE #6 tablet MDD 3 tab Loperamide HCl [Imodium -] 2 mg PO BID #14 capsule - Referrals Referrals: Pavel Myers MD [Primary Care Provider] - - Patient Instructions Printed Discharge Instructions: DI for Diarrhea and Traveler's Diarrhea -- Adult Additional Instructions: Please return to the emergency department with any new or worsening symptoms or concerns. Please follow up with your primary care physician within 72 hours. Please take 750 mg Ciprofloxacin for 2 days. - Post Discharge Activity - Attestations Physician Attestion: 07/12/18 08:40 Jo Suazo
[2018-07-12 08:46] VITALS: BP 93/50; PULSE 64; TEMP 98.2
--- NOTE | 2018-07-12 12:12 | EKG ---
Test Reason : Blood Pressure : / mmHG Vent. Rate : 070 BPM Atrial Rate : 070 BPM P-R Int : 196 ms QRS Dur : 090 ms QT Int : 448 ms P-R-T Axes : 061 -26 027 degrees QTc Int : 483 ms NORMAL SINUS RHYTHM PROLONGED QT ABNORMAL ECG WHEN COMPARED WITH ECG OF 06-FEB-2017 08:34, NO SIGNIFICANT CHANGE WAS FOUND Confirmed by UMAIR NEUMANN MD ([id number]) on 07/12/2018 12:11:46 PM Referred By: Confirmed By:UMAIR NEUMANN MD
== END 2018-07-12 09:00 | disposition home or self-care (01) ==
LOC: JER 04:53
PROC: 3E0337Z Introduction of Electrolytic and Water Balance Substance into Peripheral Vein, Percutaneous Approach (ICD-10-PCS; principal; 2018-07-12)
DX: R19.7 Diarrhea, unspecified (principal); I25.119 Atherosclerotic heart disease of native coronary artery with unspecified angina pectoris; I13.10 Hypertensive heart and chronic kidney disease without heart failure, with stage 1 through stage 4 chronic kidney disease, or unspecified chronic kidney disease; N18.9 Chronic kidney disease, unspecified; Z95.5 Presence of coronary angioplasty implant and graft; E11.21 Type 2 diabetes mellitus with diabetic nephropathy; Z79.4 Long term (current) use of insulin; E78.5 Hyperlipidemia, unspecified; E03.9 Hypothyroidism, unspecified; Z87.19 Personal history of other diseases of the digestive system
CPT/HCPCS: 36415; 71045-TC-FY; 80053; 83690; 85025; 93005; 93010; 99283-25; J7030